=== PATIENT | male | born 1970 | race Two or more races ===

== ENCOUNTER 2019-05-12 07:30 | Inpatient (IN) | payer OTHER ==
[~2019-05-12] VITALS: Ht 180.3 cm; Wt 104.3 kg
[2019-05-12] MEDS ORDERED: LANTUS SOL100 UNIT/1 SUBCUTANEO ×2 (09:45→09:46)
[2019-05-12] MEDS ORDERED: SIMVASTATIN10 MG PO (09:46)
[2019-05-12] MEDS ORDERED: GLIPIZIDE ER10 MG PO (09:46)
[2019-05-12] MEDS ORDERED: ENALAPRIL MALEA20 MG PO (09:46)
[2019-05-12] MEDS ORDERED: JANUMET 50-1,01 EACH PO (09:46)
[2019-05-12] MEDS ORDERED: EFFEXOR XR75 MG PO (09:47)
[2019-05-12] MEDS ORDERED: HYDROCHLOROTHIA50 MG PO (09:47)
[2019-05-12] MEDS ORDERED: CLONAZEPAM0.5 MG PO (09:47)
== END 2019-05-21 18:24 | disposition home or self-care (01) | DRG 331 ==
LOC: O/R 07:30 → SURH 15:15 → O/R 15:15 → SURG 05-18 08:45 → O/R 05-18 08:45 → SURG 05-18 18:49
PROVIDERS: ADMIT Colon & Rectal Surgery
PROC: 07TB4ZZ Resection of Mesenteric Lymphatic, Percutaneous Endoscopic Approach (ICD-10-PCS; 2019-05-18)
PROC: 0DJD8ZZ Inspection of Lower Intestinal Tract, Via Natural or Artificial Opening Endoscopic (ICD-10-PCS; 2019-05-18)
PROC: 0DTN4ZZ Resection of Sigmoid Colon, Percutaneous Endoscopic Approach (ICD-10-PCS; principal; 2019-05-18 12:00)
DX: C20 Malignant neoplasm of rectum (principal); E11.9 Type 2 diabetes mellitus without complications; E78.00 Pure hypercholesterolemia, unspecified; I10 Essential (primary) hypertension

== ENCOUNTER 2019-05-17 12:31 | Day surgery (SDC) | payer OTHER ==
[~2019-05-17 12:31] MED LIST: CLONAZEPAM0.5 MG PO; EFFEXOR XR75 MG PO; ENALAPRIL MALEA20 MG PO; GLIPIZIDE ER10 MG PO; HYDROCHLOROTHIA50 MG PO; JANUMET 50-1,01 EACH PO; LANTUS SOL100 UNIT/1 SUBCUTANEO; SIMVASTATIN10 MG PO
== END 2019-05-17 16:35 | disposition home or self-care (01) ==
LOC: AMB-ENDOS 12:31
DX: C19 Malignant neoplasm of rectosigmoid junction (principal); K64.1 Second degree hemorrhoids

== ENCOUNTER 2019-05-25 17:00 | Emergency (ER) | payer OTHER ==
[~2019-05-25] VITALS: Ht 180.3 cm; Wt 102.5 kg
[2019-05-25] MEDS ORDERED: PERCOCET 10-321 EACH (17:24)
== END 2019-05-25 20:30 | disposition home or self-care (01) ==
LOC: ER 17:00
DX: R30.0 Dysuria (principal); R33.8 Other retention of urine

== ENCOUNTER 2020-05-26 06:41 | Day surgery (SDC) | payer OTHER ==
[~2020-05-26 06:41] MED LIST changes: +PERCOCET 10-321 EACH
== END 2020-05-26 10:55 | disposition home or self-care (01) ==
LOC: AMB-ENDOS 06:41
PROVIDERS: ATTEND Colon & Rectal Surgery
DX: K62.89 Other specified diseases of anus and rectum (principal); Z20.828 Contact with and (suspected) exposure to other viral communicable diseases